=== PATIENT | female | born 1985 | race Caucasian/White ===

== ENCOUNTER 2016-07-25 04:15 | Emergency (ER) | payer OTHER ==
--- NOTE | 2016-07-25 04:17 | EDPHY ---
H & P HPI/ROS: HPI CHIEF COMPLAINT: Bilateral eye pain, watery eyes, photosensitivity HISTORY OF PRESENT ILLNESS: This patient very pleasant 30-year-old female, she is 28 weeks , she presents to the emergency room with over 12 hours of ongoing eye pain watery eyes. Patient states that she does wear contacts, there monthly contacts she states no change in her prescription, change contact 2 weeks ago, has cleaned contact solution and a clean contact tray. She knows around 830 yesterday morning that she had some haziness out of both eyes she did change the contact her right eye to neck new contact however they haziness persisted she then developed some discomfort in her eyes a scratchy feeling and now has burning to both eyes with injected conjunctiva photosensitivity and eye pain when she opens her eyes. No loss of vision, no headache, no nausea vomiting. No fever. No eyelid swelling. No trauma. Past Medical History: Ocular migraine Past Surgical History: No recent surgery Social History: Denies use of drugs alcohol tobacco products Family History: Noncontributory ROS REVIEW OF SYSTEMS: A comprehensive 10 point review of systems is otherwise negative aside from elements mentioned in the history of present illness. Exam Constitutional triage nursing summary reviewed, vital signs reviewed, awake/ alert. Eyes normal conjunctivae and sclera, extraocular movements intact bilateral conjunctiva is injected, anterior chambers are normal both eyes, no flare, globes are soft, eyelids are normal, extra movements are intact, no proptosis, clear tearing from both eyes. Much improved and pain controlled well after proparacaine applied. There is no uptake on fluorescein. No evidence of corneal abrasion or scratch. Appears to be on exam acute conjunctivitis most likely bacterial from contact. HENT normal inspection, atraumatic, moist mucus membranes, no epistaxis, neck supple/ no meningismus, no raccoon eyes. Respiratory clear to auscultation bilaterally, normal breath sounds, no respiratory distress, no wheezing. Cardiovascular rate normal, regular rhythm, no murmur, no edema, distal pulses normal. Gastrointestinal soft, non-tender, no rebound, no guarding, normal bowel sounds, no distension, no pulsatile mass. Genitourinary no CVA tenderness. Musculoskeletal no midline vertebral tenderness, full range of motion, no calf swelling, no tenderness of extremities, no meningismus, good pulses, neurovascularly intact. Skin pink, warm, & dry, no rash, skin atraumatic. Neurologic awake, alert and oriented x 3, AAOx3, moves all 4 extremities equally, motor intact, sensory intact, CN II-XII intact, normal cerebellar, normal vision, normal speech. Psychiatric normal mood/affect. Heme/Lymph/Immune no lymphadenopathy. Differential Diagnosis: Includes but is not limited to in a particular order, viral conjunctivitis, bacterial conjunctivitis, contact lens associated infection corneal abrasion iritis Medical Decision Making: patient here in the emergency room with bilateral injected conjunctiva tearing photosensitivity. No trauma. Is a contact wearer. On exam has a conjunctivitis. Improved pain control proparacaine. No fluorescein uptake. Re-evaluation: 1. I did recommend she follows up with Ophthalmology 24 to forty eight hours. 2. she understands return emergency room she develops any worsening symptoms. This includes fever, worsening pain or visual troubles. 3. She understands to throw out her contacts, throughout contact tray get new cleaning solution and do not wear contacts for at least a week. 4.Will be placed on Cipro drops which a fluoroquinolone which should cover contact lens associated bacteria and eye infection. 5. she understands return emergency room there is any worsening symptoms. 1st dose of Cipro was given here in the emergency room. 6. close up the follow-up. [id number]: I spoke with Ophthalmology on-call at this time the plan on seeing this patient 1st thing Wednesday morning. They do recommend the previous recommendations I gave her, they also recommend that if she gets worse over the weekend to return emergency room will be glad to see her in consultation. As for nail antibiotic drops, do not wear contacts and follow up with them on Wednesday. Specifically I spoke with Eric Irving. Source: Patient - Personal History Tetanus Vaccine Date: 2013 - Medical/Surgical History Hx Asthma: No Hx Chronic Respiratory Disease: No Hx Diabetes: No Hx Cardiac Disease: No Hx Renal Disease: No Hx Cirrhosis: No Hx Alcoholism: No Hx HIV/AIDS: No Hx Splenectomy or Spleen Trauma: No Other PMH: depression - Social History Smoking Status: Never smoked Constitutional: Initial Vital Signs Heart Rate 94 07/25/16 04:19 Respiratory Rate 16 07/25/16 04:19 Blood Pressure 133/86 H 07/25/16 04:19 O2 Sat (%) 95 07/25/16 04:19 O2 Delivery Mode Room Air Allergies/Adverse Reactions: No Known Allergies Allergy (Verified 06/22/15 17:18) Home Medications: Medication Instructions Recorded Ciprofloxacin [Ciloxan Opth Drops] 2 drops OP Q2 7 Days 07/25/16 Hydrocodone/APAP 5/325 [[place] 1 - 2 tab PO Q4H PRN #10 tab 07/25/16 5/325 (*)] 07/25/16 Medical Decision Making - Data Points Medications Given: Discontinued Medications Fluorescein Sodium (Pipjr-Q-Faexz) 2 mg OP EDNOW ONE Stop: 07/25/16 04:29 Last Admin: 07/25/16 04:34 Dose: 2 mg Proparacaine HCl (Alcaine 0.5%) 1 drops EACHEYE ONCE ONE Stop: 07/25/16 04:29 Last Admin: 07/25/16 04:34 Dose: 1 drop Departure - Departure Disposition: Home, Routine, Self-Care Clinical Impression: Conjunctivitis Qualifiers: Conjunctivitis type: acute Acute conjunctivitis type: bacterial Laterality: bilateral Qualified Code(s): H10.33 - Unspecified acute conjunctivitis, bilateral Condition: Fair Instructions: Conjunctivitis (ED), Narcotic-Analgesic/Acetaminophen (By mouth) , Hydrocodone/Acetaminophen (By mouth) Additional Instructions: You are supposed to have a follow-up appoint with Ophthalmology on Wednesday morning. Return to the emergency room if worsening symptoms over the weekend. 1. Do not wear contacts for at least a week. 2. follow up with Ophthalmology in 24-48 hours. 3. return to the emergency room if you have worsening pain or symptoms. 4. Throw out your contacts, and your contact tray get new cleaning solution. 5. take Tylenol for pain control and cool compresses to your eyes. Do not scratch your eyes. Do not rub them. Referrals: Analia Izquierdo MD [Primary Care Provider] - As per Instructions Eric Bethea [Medical Doctor] - As per Instructions Prescriptions: Ciprofloxacin [Ciloxan Opth Drops] 2 drops OP Q2 7 Days Hydrocodone/APAP 5/325 [[place] 5/325 (*)] 1 - 2 tab PO Q4H PRN #10 tab PRN Reason: Pain, Moderate
[2016-07-25 04:22] VITALS: BP 133/86; PULSE 94; RESP 16; O2SAT 95
[2016-07-25] MEDS ORDERED: FLUORESCEIN SODIUM 1 MG STRIP OP ONE ×2 (04:27→04:28)
[2016-07-25] MEDS ORDERED: PROPARACAINE 0.5% 15 ML OPHT DROP ONE (04:27)
[2016-07-25] MEDS ORDERED: PROPARACAINE 0.5% 15 ML OPHT DROP EACHEYE ONE (04:28)
[2016-07-25] MEDS ORDERED: CIPROFLOXACIN OP ONE (04:36)
[2016-07-25] MEDS ORDERED: HYDROCOD/APAP 5/325 PREPACK#6 BTL TAKEHOME ONE (04:53)
== END 2016-07-25 05:10 | disposition home or self-care (01) ==
DX: O99.89 Other specified diseases and conditions complicating pregnancy, childbirth and the puerperium (principal); H10.33 Unspecified acute conjunctivitis, bilateral; Z3A.22 22 weeks gestation of pregnancy

== ENCOUNTER 2016-10-16 06:00 | Inpatient (IN) | payer OTHER ==
--- NOTE | 2016-10-16 06:32 | OBPROG ---
OBG Labor Progress Note Assessment/Plan: Assessment:cat 1 fhr pain well managed amador bulb discontinued irregular contractions exam /ballotable soft Plan:pitocin per protocol 10/16/16 06:26 Subjective: States feeling cramping through the night with the amador bulb. Denies bleeding. Feeling positive movement. - SVE Dilation (cm): 3 Effacement (%): 50 Station: -3 - Physical Exam General Appearance: WD/WN, alert, no apparent distress Respiratory: chest non-tender, lungs clear, normal breath sounds Cardiac/Chest: regular rate, rhythm Abdomen: normal bowel sounds Extremities: normal range of motion, Jerry's sign (negative bu) DTR- Lower Extremities: Knee (R): 1+ (no clonus biolaterally), Knee (L): 1+ Skin: normal color, warm/dry Neuro/Psych: no motor/sensory deficits, alert, normal mood/affect, oriented x 3 ICD10 Worksheet Patient Problems: Problems Problem Status Onset Decreased movement Acute Post-dates Acute
[2016-10-16] MEDS ORDERED: TERBUTALINE SULFATE 1 MG/ML VIAL IV PRN (06:33)
[2016-10-16] MEDS ORDERED: OLIVE OIL 118 ML BTL MISC PRN (06:33)
[2016-10-16] MEDS ORDERED: EPSOM SALT 454 GM TP PRN (06:33)
[2016-10-16] MEDS ORDERED: IBUPROFEN 600 MG TAB PO PRN (06:33)
[2016-10-16] MEDS ORDERED: OXYTOCIN/RINGERS LACTATE 1,000 ML IV PRN (06:33)
[2016-10-16] MEDS ORDERED: LR 1,000 ML IV PRN (06:33)
[2016-10-16] MEDS ORDERED: OXYTOCIN/RINGERS LACTATE 500 ML IV SCH (07:00)
[2016-10-16 07:15] LABS: % IMMATURE GRANULYOCYTES 0.7 % (0.0-1.1); ABSOLUTE IMMATURE GRANULOCYTES 0.07 10^3/uL (0.00-0.10); ADD DIFF? NO; ADD MORPH? NO; ADD SCAN? NO; ATYPICAL LYMPHOCYTE FLAG 20 (0-99); FRAGMENT RBC FLAG 0 (0-99); HEMATOCRIT 36.9 % (38.0-47.0); HEMOGLOBIN 12.8 g/dL (12.6-16.3); LEFT SHIFT FLG 0 (0-99); LIPEMIA HEMOLYSIS FLAG 90 (0-99); MEAN CELL HEMOGLOBIN 31.8 pg (27.9-34.1); MEAN CELL HEMOGLOBIN CONCENTR. 34.7 g/dL (32.4-36.7); MEAN CELL VOLUME 91.6 fL (81.5-99.8); MEAN PLATELET VOLUME 9.9 fL (8.7-11.7); PLATELET CLUMPS FLAG 0 (0-99); PLATELET COUNT 232 10^3/uL (150-400); RED BLOOD CELL COUNT 4.03 10^6/uL (4.18-5.33); RED CELL DISTRIBUTION WIDTH 12.8 % (11.5-15.2)
[2016-10-16] MEDS ORDERED: MISOPROSTOL 200 MCG TAB ONE (07:28)
--- NOTE | 2016-10-16 07:41 | GHP ---
[f rep st] HISTORY AND PHYSICAL DATE OF ADMISSION: 10/16/2016 HISTORY OF PRESENT ILLNESS: The patient is a 30-year-old, 3, para 2, with an EDC of 017, who comes in for elective induction of labor, on 10/16/2016, at 39 and 6/7 weeks gestational ag e. States feeling positive movement. Denies leaking. Denies bleeding. States feeling irreg ular cramping. On admission De Santiago bulb was able to be discontinued as it had fallen into the vagina and out of the cervix. The patient has been receiving routine care, through [facility], since 03/26/2016. MEDICAL HISTORY: History of anxiety. Patient started Zoloft 50 mg at 36 weeks. Has bee n taking for 2 weeks. OTHER MEDICAL HISTORY: History of anemia with her first . Frequent headaches. IBS. GYNECOLOGICAL HISTORY: History of OCP use. Paps have been within normal limits. Occasional yeast infections. SURGICAL HISTORY: Rhinoplasty in 2003. Right shoulder surgery in 2009; difficulties with that were postop nausea and vomiting. FAMILY HISTORY: Family history of cleft lip as well as family history of Down syndrome. PAST HISTORY: February of 2012 a male that weighed 7 pounds 5 ounces, at 40+ weeks, 13 ho urs of labor, vaginal delivery with an epidural, vacuum assisted delivery. On 08/2014 a male that w eighed 7 pounds, 15 ounces, at 40 and 2/7th weeks, 8 hours, vaginal delivery with an epidural, this was also an induction as well as the first. SOCIAL HISTORY: Patient is . Denies drug use. Denies alcohol use. Significant other is An dy, they are . LABS: Patient is B positive. Antibody negative. RPR is nonreactive. Rubella is immune. Hepatiti s is negative. HIV is negative. Trio screen in 2011 was negative. A urine culture, Pap, gonorrhea and chlamydia were negative. Verifi was negative. Other history, dates were verified with an early ultrasound at 7 and 6/7th weeks. PHYSICAL EXAMINATION: GENERAL: Patient is awake, alert, oriented x3. LUNGS: Clear bilaterally. ABDOMEN: Bowel sounds are positive in all 4 quadrants. EXTREMITIES: DTRs are 1+ bilaterally with no clonus. Homans sign is negative bilaterally. ABDOMEN: On palpation abdomen is soft, with irregu lar contractions noted. Exam after De Santiago was discontinued, patient was 350 ballotable, soft, mid. PLAN OF CARE: 1. Patient is GBS negative. 2. Pitocin per protocol. 3. Amniotomy when there is descent, after several hours of contractions. 4. Patient is requesting an epidural for pain relief when she decides. 5. Dr. Delgado notified that the patient is here for induction of labor and the admit was completed, and on plan of care. /[id number]/MODL
[2016-10-16] MEDS ORDERED: fentaNYL 2MCG/ML/BUP 0.1% RTU 100 ML BAG EP ONE (10:48)
[2016-10-16] MEDS ORDERED: BUPIVACAINE 0.25% 30 ML SDV ONE (10:49)
[2016-10-16] MEDS ORDERED: PHENYLEPHRINE HCL 100 MCG/ML SYR ONE (10:50)
[2016-10-16] MEDS ORDERED: ONDANSETRON 4 MG/2 ML VIAL ONE (11:14)
[2016-10-16] MEDS ORDERED: PHENYLEPHRINE HCL 100 MCG/ML SYR IVP PRN (11:42)
[2016-10-16] MEDS ORDERED: ONDANSETRON 4 MG/2 ML VIAL IVP PRN (11:42)
[2016-10-16] MEDS ORDERED: NALOXONE HCL 0.4 MG/ML INJ IVP PRN (11:42)
[2016-10-16] MEDS ORDERED: fentaNYL 2MCG/ML/BUP 0.1% RTU 100 ML EP SCH (12:00)
[2016-10-16] MEDS ORDERED: LR 500 ML IV SCH (12:00)
--- NOTE | 2016-10-16 12:41 | OBPROG ---
OBG Labor Progress Note Assessment/Plan: Assessment: 30 y/o @ 39 6/7 wks for elective IOL Plan: Pitocin at 8 mu/min, cont per protocol s/p epidural FHTs - Cat I tracing AROM - moderate amount of meconium stained fluid; [employer] notified Anticipate 10/16/16 12:43 Subjective: Pt is comfortable, s/p epidural. Objective: 10/16/16 06:30 Patient ABO/Rh B POSITIVE 10/16/16 06:30 - SVE Dilation (cm): 3 Effacement (%): 50 Station: -1 Carranza FHR (bpm): 135 FHR Pattern Variability: Moderate FHR Category: 1 Membranes: AROM Amniotic Fluid Color: Meconium Stained - Procedures Non-surgical Procedures: Amniotomy Oxytocin Orders Assessment - Pre-Induction/Augmentation Assessment Indication: elective Presentation: Vertex Gestational Age: 39 week(s) and 6 day(s) Gestational Age Determined By: Last Menstral Period, Other (Specify) (confirmed by first trimester u/s) Estimated Weight: 2501-3400g Membrane Status: Ruptured (meconium-stained fluid) Current Contraction Pattern: Regular - Heart Rate Pattern Carranza FHR Baseline (bpm): 135 FHR Category: 1 FHR Pattern Variability: Moderate FHR Accelerations: Present ICD10 Worksheet Patient Problems: Problems Problem Status Onset Decreased movement Acute Post-dates Acute
[2016-10-16] MEDS ORDERED: DOCUSATE SODIUM 100 MG CAP PO PRN (17:15)
[2016-10-16] MEDS ORDERED: HYDROCORTISONE 0.5% CREAM TP PRN (17:15)
[2016-10-16] MEDS ORDERED: SIMETHICONE 80 MG TAB CHEW PO PRN (17:15)
[2016-10-16] MEDS ORDERED: HYDROCODONE/APAP 5/325 TAB PO PRN (17:15)
--- NOTE | 2016-10-16 17:19 | OBDEL ---
Info Type: Vaginal GBS+: No Indications for Delivery: Elective Vaginal Delivery - Labor and Delivery Onset of Contractions Date: 10/16/16 Onset of Contractions Time: 07:00 Onset of Contractions Type: Induced Rupture of Membranes Date: 10/16/16 Rupture of Membranes Time: 12:45 Rupture of Membranes Type: Artificial Amniotic Fluid Color: Meconium Stained Dilation Complete Date: 10/16/16 Dilation Complete Time: 04:30 Placenta Delivery Date: 10/16/16 Placenta Delivery Time: 17:03 Total Hours of Labor: 10 Non-surgical Procedures: Amniotomy Laceration: 2nd Degree Repair: 3-0, Vicryl Vaginal Sponge Count Correct: Yes Vaginal Needle Count Correct: Yes Vaginal Sweep Performed: Yes EBL: 300cc Delivery Events: Nuchal Cord (loose, slipped over perineum), Other (Specify) ( True knot in cord) - Medications Labor Augmentation/Induction Methods Used: Pitocin Labor Augmentation/Induction Indication: Elective Data Carranza Delivery Date: 10/16/16 Delivery Time: 16:57 LAI: 10/17/16 Gestational Age: 39 week(s) and 6 day(s) Sex of : Male Score (1 Min): 8 Score (5 Min): 9 ICD10 Worksheet Patient Problems: Problems Problem Status Onset Elective induction of labor planned Acute
[2016-10-16 17:23] LABS: BASE EXCESS CORD -7.3 mEq/L (-13.6--3.2); CORD BLOOD PCO2 47.1 mmHg (37-60); PH ARTERIAL CORD BLOOD 7.25 (7.10-7.37)
[2016-10-16 17:26] LABS: PH VENOUS CORD BLOOD 7.31 (7.20-7.42)
[2016-10-16] MEDS: IBUPROFEN 600 MG TAB PO PRN ×2 (17:33→22:14)
[2016-10-17] MEDS: IBUPROFEN 600 MG TAB PO PRN ×3 (04:25→16:21)
[2016-10-17] MEDS ORDERED: SERTRALINE HCL 50 MG TAB PO SCH (09:00)
--- NOTE | 2016-10-17 12:00 | OBPP ---
Progress Note Assessment/Plan: Assessment: well pain well managed ff @u scant rubra lochia voiding without difficulty Plan:discharge to home with instructions fu 4 and 6 weeks, pericare, pain management, , ss infection, bleeding pattern, pelvic rest, contraception, rest, exercise, verbalized understanding of all of the above 10/16/16 06:26 10/17/16 11:56 Subjective: Doing well denies difficuties. PAin well managed, well. Objective: 10/16/16 06:30 Patient ABO/Rh B POSITIVE 10/16/16 06:30 Temp Pulse Resp BP Pulse Ox 36.2 C 88 18 110/68 96 10/17/16 08:10 10/17/16 08:10 10/17/16 08:10 10/17/16 08:10 10/17/16 08:10 Uterine Position/Fundal Height: At Umbilicus Uterine Tone: Firm Physical Exam - Physical Exam General Appearance: WD/WN, alert, no apparent distress Extremities: normal range of motion, Jerry's sign (negative bilaterally) DTR- Lower Extremities: Knee (R): 1+, Knee (L): 1+ (no clonus) Skin: normal color, warm/dry Neuro/Psych: no motor/sensory deficits, alert, normal mood/affect, oriented x 3
--- NOTE | 2016-10-17 12:01 | OBGCSDC ---
General Delivery Information - General Info : 3 Para: 3 Delivery Physician/CNM: Kasia Loaiza Labs: Patient ABO/Rh B POSITIVE 10/16/16 06:30 Hct 36.9 % (38.0-47.0) L 10/16/16 06:30 Vaginal - Diagnosis Labor: Induced Rupture of Membranes Type: Artificial Amniotic Fluid Color: Meconium Stained Laceration: 2nd Degree Repair: 3-0, Vicryl Delivery Events: Nuchal Cord (loose, slipped over perineum), Other (Specify) ( True knot in cord) - Operations/Procedures Non-surgical Procedures: Amniotomy L&D Analgesia/Anesthesia Type: Epidural - Hospital Course Antepartum: ama Intrapartum: elective iol : vaginal delivery 2 degree laceration repaired well. pain well managed - Delivery Non-surgical Procedures: Amniotomy L&D Analgesia/Anesthesia Type: Epidural Data Carranza Delivery Date: 10/16/16 Delivery Time: 16:57 LAI: 10/17/16 Gestational Age: 40 week(s) and 0 day(s) Sex of Infant: Male Weight (gm): 3478 g Score (1 Min): 8 Score (5 Min): 9
[2016-10-17 17:45] VITALS: BP 111/75; PULSE 75; RESP 16; TEMP 98.5; O2SAT 94
== END 2016-10-17 17:10 | disposition home or self-care (01) | DRG 769 ==
LOC: FLD 06:05 → FOB 20:04
PROVIDERS: ADMIT Obstetrics & Gynecology; ATTEND Obstetrics & Gynecology
PROC: 10E0XZZ Delivery of Products of Conception, External Approach (ICD-10-PCS; principal; 2016-10-16)
PROC: 10907ZC Drainage of Amniotic Fluid, Therapeutic from Products of Conception, Via Natural or Artificial Opening (ICD-10-PCS; principal; 2016-10-16)
PROC: 0KQM0ZZ Repair Perineum Muscle, Open Approach (ICD-10-PCS; principal; 2016-10-16)
DX: O70.1 Second degree perineal laceration during delivery (principal); O77.0 Labor and delivery complicated by meconium in amniotic fluid; O69.81X0 Labor and delivery complicated by cord around neck, without compression, not applicable or unspecified; O69.2XX0 Labor and delivery complicated by other cord entanglement, with compression, not applicable or unspecified; Z3A.40 40 weeks gestation of pregnancy; Z38.00 Single liveborn infant, delivered vaginally
CPT/HCPCS: J2370; J2405; J2590